=== PATIENT | male | born 1950 | race Caucasian/White ===

== ENCOUNTER 2019-09-12 08:37 | Emergency (ER) | payer MEDICARE ==
[~2019-09-12] VITALS: Ht 190.5 cm; Wt 99.4 kg
[2019-09-12 08:44] VITALS: Ht 190.5 cm; Wt 99.4 kg
[2019-09-12 10:04] VITALS: BP 154/78
== END 2019-09-12 10:04 | disposition home or self-care (01) ==
LOC: ED 08:37
DX: M54.31 Sciatica, right side (principal); E78.00 Pure hypercholesterolemia, unspecified; Z88.2 Allergy status to sulfonamides